=== PATIENT | male | born 1985 | race Hispanic/Latino ===

== ENCOUNTER 2017-09-15 20:45 | Emergency (ER) | payer BC ==
[~2017-09-15] VITALS: Ht 180.3 cm; Wt 76.2 kg
== END 2017-09-15 22:02 | disposition home or self-care (01) ==
LOC: ED 20:45
DX: S63.284A Dislocation of proximal interphalangeal joint of right ring finger, initial encounter (principal); X58.XXXA Exposure to other specified factors, initial encounter
CPT/HCPCS: 26770; 73140; 99283

== ENCOUNTER 2017-11-09 15:53 | Emergency (ER) | payer BC ==
[~2017-11-09] VITALS: Ht 180.3 cm; Wt 76.2 kg
[2017-11-09] MEDS ORDERED: IBUPROFEN600 MG PO (16:45)
[2017-11-09] MEDS ORDERED: NORCO 5-325 TA1 EACH PO (16:45)
== END 2017-11-09 17:00 | disposition home or self-care (01) ==
LOC: ED 15:53
DX: S52.121A Displaced fracture of head of right radius, initial encounter for closed fracture (principal); V80.010A Animal-rider injured by fall from or being thrown from horse in noncollision accident, initial encounter
CPT/HCPCS: 73080; 99283